=== PATIENT | female | born 1985 | race Caucasian/White ===

== ENCOUNTER 2018-11-29 02:15 | Emergency (ER) | payer OTHER, SELFPAY ==
[2018-11-29] MEDS ORDERED: Lorazepam 2 MG/ML VIAL ONE (02:31)
[2018-11-29 02:37] LABS: #Basophils 0.1 thou/uL (0.0-0.2); #Eosinphils 0.1 thou/uL (0.0-0.7); #Lymphocytes 2.4 thou/uL (1.20-3.40); #Monocytes 0.5 thou/uL (0.11-0.59); #Neutrophils 3.5 thou/uL (1.40-6.50); %Basophils 1.1 % (0.0-1.0); %Lymphocytes 36.3 % (21.0-51.0); %Monocytes 7.9 % (0.0-10.0); %Neutrophils 52.7 % (42.0-75.0); Hemoglobin 14.7 g/dL (12.0-16.0); Mean Corpuscular HGB CONC 35.1 g/dL (32.0-36.0); Mean Corpuscular Hemoglobin 33.1 pg (27.0-31.0); Mean Corpuscular Volume 94.1 fL (78.0-98.0); Mean Platelet Volume 8.4 fL (7.4-10.4); Platelet Count 255 thou/uL (130-400); RBC Distribution Width 11.3 % (11.5-14.5); Red Blood Cell (RBC) Count 4.46 mill/uL (4.20-5.40); White Blood Cell (WBC) Count 6.6 thou/uL (4.8-10.8)
[2018-11-29 02:50] LABS: BHCG - Serum Negative (NEGATIVE); Pregs Control Background? CLEAR/WHITE (CLR/WHITE); Pregs Control Bar Appear? YES (CONTROL BAR)
[2018-11-29 02:58] LABS: ALT (SGPT) 15 U/L (8-55); AST (SGOT) 19 U/L (5-34); Albumin 4.1 g/dL (3.5-5.0); Alkaline Phosphatase 56 U/L (40-150); Anion Gap 13 mmol/L (10-20); BUN (Urea Nitrogen) 11 mg/dL (7.0-18.7); Bilirubin, Total 0.3 mg/dL (0.2-1.2); Calc. Creatinine Clearance 0 mL/min (70-130); Calcium 8.9 mg/dL (7.8-10.44); Carbon Dioxide 23 mmol/L (22-29); Chloride 107 mmol/L (98-107); Estimated GFR-MDRD Greater than 90; Globulin 2.9 g/dL (2.4-3.5); Glucose 94 mg/dL (70-105); Potassium 4.1 mmol/L (3.5-5.1); Sodium 139 mmol/L (136-145)
[2018-11-29] MEDS ORDERED: Meclizine HCl 25 MG TAB ONE (03:32)
--- NOTE | 2018-11-29 09:03 | CT ---
PRELIMINARY REPORT/[facility]/EMERGENTY AFTER-HOURS PROCEDURE CT Angiography Head With Contrast EXAM DATE/TIME: 11/29/2018 2:45 AM CLINICAL HISTORY: 33 years old, female; Dizziness and giddiness and vertigo; Patient HX: Er 15; 33f presents for sudden onset of dizziness and ataxia. TECHNIQUE: Axial computed tomographic angiography images of the head with intravenous contrast using CT angiogra phy protocol. Coronal and sagittal reformatted images were created and reviewed. MIP reconstructed images were created and reviewed. COMPARISON: No relevant prior studies available. FINDINGS: Right internal carotid artery: Unremarkable. Intracranial segment is patent with no significant steno sis. No aneurysm. Right anterior cerebral artery: Unremarkable. No occlusion or significant stenosis. No aneurysm. Right middle cerebral artery: Unremarkable. No occlusion or significant stenosis. No aneurysm. Right posterior cerebral artery: Unremarkable. No occlusion or significant stenosis. No aneurysm. Right vertebral artery: Unremarkable. No occlusion or significant stenosis. No aneurysm. Left internal carotid artery: Unremarkable. Intracranial segment is patent with no significant stenos is. No aneurysm. Left anterior cerebral artery: Unremarkable. No occlusion or significant stenosis. No aneurysm. Left middle cerebral artery: Unremarkable. No occlusion or significant stenosis. No aneurysm. Left posterior cerebral artery: Normal variant origin left posterior cerebral artery. No occlus ion or significant stenosis. No aneurysm. Left vertebral artery: Unremarkable. No occlusion or significant stenosis. No aneurysm. Basilar artery: Unremarkable. No occlusion or significant stenosis. No aneurysm. CT Angiography Neck With Contrast EXAM DATE/TIME: 11/29/2018 2:45 AM TECHNIQUE: Axial computed tomographic angiography images of the neck with intravenous contrast using CT angiogra phy protocol. Coronal and sagittal reformatted images were created and reviewed. MIP reconstructed images were created and reviewed. COMPARISON: No relevant prior studies available. FINDINGS: VASCULATURE: Right common carotid artery: Normal. No significant stenosis. No dissection or occlusion. Right internal carotid artery: Normal. Extracranial segment is patent with no significant stenosis. N o dissection or occlusion. Right external carotid artery: Normal. No occlusion or significant stenosis. Right vertebral artery: Normal. No significant stenosis. No dissection or occlusion. Left common carotid artery: Normal. No significant stenosis. No dissection or occlusion. Left internal carotid artery: Normal. Extracranial segment is patent with no significant stenosis. No dissection or occlusion. Left external carotid artery: Normal. No occlusion or significant stenosis. Left vertebral artery: Normal. No significant stenosis. No dissection or occlusion. NECK: Bones/joints: No acute fracture. Soft tissues: No significant soft tissue swelling. IMPRESSION: No acute findings. No occlusion or significant stenosis. No aneurysm. No ICA stenosis bilaterally. COMMENT: Reference per NASCET criteria for degree of stenosis: Mild: <50% stenosis. Moderate: 50-69% stenosis. Severe: 70-94% stenosis. Near occlusion: 95-99% stenosis. Thank you for allowing us to participate in the care of your patient. Dictated and Authenticated by: Matthew Padilla MD 11/29/2018 3:36 AM Central Time ([place]) FINAL REPORT CONTRAST ENHANCED CAROTID CTA AND INTRACRANIAL CTA: HISTORY: A 33-year-old with a history of dizziness, giddiness, and vertigo. TECHNIQUE: Axial images were obtained after the administration of IV contrast, and 2D and 3D reconstructed image s were performed on an independent 3D work station. FINDINGS: CTA carotid and intracranial CTA demonstrate no evidence of common carotid, internal carotid, or exte rnal carotid artery disease. Intracranial CTA is unremarkable. Major intracranial vessels are unrem arkable. IMPRESSION: Unremarkable cervical and intracranial CTA. I concur with the dictation from [facility]. POS: [facility]
--- NOTE | 2018-11-29 09:04 | CT ---
PRELIMINARY REPORT/[facility]/EMERGENTY AFTER-HOURS PROCEDURE CT Head Without Contrast EXAM DATE/TIME: 11/29/2018 2:43 AM CLINICAL HISTORY: 33 years old, female; Signs and symptoms; Dizziness; Patient HX: Er 15; 33f presents for sudden onset of dizziness and ataxia. Patient was standing in the nurses station and reported she suddenly felt d tonya, like the room was spinning. Patient became nauseated but did not vomit. While trying to ambulate patient, patient with ataxic gait and required 2 person assist. Patient reports feeling as i f the room is spinning, denies undulating movements. Denies headache. Reports blurry vision. Unable t o keep eyes open. TECHNIQUE: Axial computed tomography images of the head/brain without contrast. COMPARISON: No relevant prior studies available. FINDINGS: Brain: Normal. No hemorrhage. No significant white matter disease. No edema. Ventricles: Normal. No ventriculomegaly. Bones/joints: Normal. No acute fracture. Sinuses: Normal as visualized. No acute sinusitis. Mastoid air cells: Normal as visualized. No mastoid effusion. Soft tissues: Normal. IMPRESSION: No acute intracranial abnormality. Thank you for allowing us to participate in the care of your patient. Dictated and Authenticated by: Matthew Padilla MD 11/29/2018 3:29 AM Central Time ([place]) FINAL REPORT HEAD CT WITHOUT CONTRAST: Date: 11/29/18 COMPARISON: None. HISTORY: Ataxia and dizziness. FINDINGS/IMPRESSION: This report is in agreement with the preliminary report given by Sandhya. Imaged paranasal sinuses and m astoid air cells are well aerated. No displaced calvarial fracture. No intracranial hemorrhage, midli ne shift, mass effect, or ventricular enlargement. IMPRESSION: No acute findings. POS: [facility]
== END 2018-11-29 04:04 | disposition home or self-care (01) ==
LOC: ERS 02:15
DX: H81.13 Benign paroxysmal vertigo, bilateral (principal)
CPT/HCPCS: 70450; 70496; 70498; 80053; 84703; 85025; 96361; 96374; J2060

== ENCOUNTER 2019-03-06 14:58 | Outpatient (CLI) | payer OTHER ==
--- NOTE | 2019-03-06 15:47 | MMO ---
Bilateral MAMMO Bilat Diag [facility]. CLINICAL HISTORY: Patient is 33 years old and is seen for diagnostic exam and in the right breast. The patient has no family history of breast cancer. The patient has no personal history of cancer. VIEWS: The views performed were: bilateral craniocaudal with tomosynthesis; bilateral mediolateral oblique with tomosynthesis; and bilateral mediolateral. FILMS COMPARED: The present examination has been compared to a prior imaging study performed at [facility] on 03/06/2019. MAMMOGRAM FINDINGS: The breasts are heterogeneously dense, which could obscure a lesion on mammography. There are no suspicious masses, suspicious calcifications, or new areas of architectural distortion. The area of palpable concern on the right is unremarkable mammographically. Please see ultrasound report for full detail. IMPRESSION: THERE IS NO MAMMOGRAPHIC EVIDENCE OF MALIGNANCY. A ROUTINE FOLLOW-UP MAMMOGRAM AT AGE 40 IS RECOMMENDED. 3BTHE RESULTS OF THIS EXAM WERE SENT TO THE PATIENT.0B ACR BI-RADS Category 1 - Negative MAMMOGRAPHY NOTE: 1. A negative mammogram report should not delay a biopsy if a dominant of clinically suspicious mass is present. 2. Approximately 10% to 15% of breast cancers are not detected by mammography. 3. Adenosis and dense breasts may obscure an underlying neoplasm.
--- NOTE | 2019-03-06 17:09 | ULT ---
FOCUSED ULTRASOUND OF THE RIGHT BREAST: 03/06/19 COMPARISON: None. HISTORY: Palpable abnormality at the 3-4 o'clock position of the right breast. TECHNIQUE: Focused ultrasound in the area of palpable concern obtained. FINDINGS: The patient's breast tissue is extremely dense on bilateral mammography, with no discrete focal mammo graphic lesion in the area of palpable concern. Focused ultrasound in this region demonstrates ill-de fined, very dense breast tissue with intermixed areas of cystic change and ill-defined fibrous appear ing tissue. There is no discrete/measurable mass lesion. There is no abnormal shadowing. IMPRESSION: BIRADS 2: Benign Finding(s) Routine annual screening mammography (for women over age 40). Findings are felt to most likely represent a combination of extremely dense breast tissue and scatter ed areas of fibrocystic change. Negative imaging should not delay biopsy of a clinically suspicious a bnormality. Recommend followup ultrasound as clinically warranted. POS: [facility]
== END 2019-03-06 14:59 | disposition home or self-care (01) ==
LOC: BICMAMMO 14:58
PROVIDERS: ATTEND Obstetrics & Gynecology
DX: N60.01 Solitary cyst of right breast (principal)
CPT/HCPCS: 77066; G0279

== ENCOUNTER 2021-06-18 08:22 | Outpatient (CLI) | payer OTHER | END 2021-06-18 08:23 | disposition home or self-care (01) | LOC: BICMAMMO 08:22 | PROVIDERS: ATTEND Advanced Practice Midwife | DX: N63.10 Unspecified lump in the right breast, unspecified quadrant (principal) | CPT/HCPCS: 77066; G0279 ==

== ENCOUNTER → 2021-06-19 | Day surgery (SDC) | payer OTHER | LOC: BICULT 12:43 | PROVIDERS: ATTEND Advanced Practice Midwife | PROC: 0H9T3ZX Drainage of Right Breast, Percutaneous Approach, Diagnostic (ICD-10-PCS; principal; 2021-06-19) | DX: N60.11 Diffuse cystic mastopathy of right breast (principal); N60.21 Fibroadenosis of right breast; N60.81 Other benign mammary dysplasias of right breast; N64.1 Fat necrosis of breast | CPT/HCPCS: 19083; 88305 ==